=== PATIENT | male | born 1940 | race Caucasian/White ===

== ENCOUNTER 2018-03-17 05:30 | Inpatient (IN) | payer MEDICARE ==
[2018-03-17 05:59] VITALS: BP 149/85
[2018-03-17] MEDS ORDERED: NIFEDIPINE 30 MG PO SCH (09:30)
[2018-03-17] MEDS ORDERED: [UNRECOGNIZED DRUG - OTHER] PO SCH (09:30)
[2018-03-17] MEDS ORDERED: BENAZEPRIL PO SCH (09:30)
[2018-03-17] MEDS ORDERED: AMLODIPINE BESYLATE PO SCH (09:30)
[2018-03-17] MEDS ORDERED: [UNRECOGNIZED DRUG - OTHER] PO SCH (09:30)
[2018-03-17] MEDS ORDERED: GLIMEPIRIDE 1 MG PO SCH (09:30)
[2018-03-17] MEDS ORDERED: HYDROCHLOROTHIAZIDE PO SCH (09:30)
[2018-03-17] MEDS ORDERED: Non-Formulary Item 1 EA (Atorvastatin Calcium [Lipitor] 40 MG) PO SCH (09:30)
[2018-03-17] MEDS ORDERED: LISINOPRIL PO SCH (09:30)
[2018-03-17] MEDS: NITROGLYCERIN OINT 2% 1 INCH PACKET TP SCH ×2 (12:06→17:30)
[2018-03-17] MEDS: INSULIN ASPART SLIDING SCALE 100 UNITS/ML UNIT SUBQ SCH ×3 (12:24→20:34)
--- NOTE | 2018-03-17 12:28 | History & Physical ---
ADMIT DATE: 03/17/2018 IDENTIFICATION: A 77-year-old male. CHIEF COMPLAINT: Chest pain. HISTORY SOURCE: Reviewing the chart from [facility] as well as talking to the patient's family and patient. HISTORY OF PRESENT ILLNESS: A 77-year-old [place] Ze[place]ander Wall[place]ian male with history of type 2 diabetes, hypertension, coronary artery disease, status post bypass graft 3 years ago and is well, also has history of hyperlipidemia, presented to [facility] Emergency Room with substernal chest pain for the last 3 days in duration. According to the patient, the pain started 3-4 days ago, which was exertional and associated with some degree of shortness of breath, where pain got worse yesterday so he presented to ER. The patient was worked up in the Emergency Room, noted to have a negative troponin, but elevated creatinine and abnormal EKG. Based on his cardiac history, it was recommended that the patient should be admitted. Due to his insurance reason, patient is transferred to [facility]. According to the patient's son, he has been diagnosed with chronic kidney disease stage 4, and he is not taking any medications to correct his electrolytes or anything else as well. 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 According to the patient, he does not have any fever, chills, cough, nausea, vomiting, headache, seizure, syncopal episode. He is noted to have a significant amount of left ankle swelling and pain. PAST MEDICAL HISTORY: Remarkable for: 1. Diabetes. 2. Hypertension. 3. Hyperlipidemia. 4. Coronary artery disease, status post bypass graft. 5. Degenerative joint disease. 6. Peripheral vascular disease. 7. Chronic kidney disease. MEDICATIONS AT HOME: The patient is taking multiple medications, which include; 1. Glimepiride. 2. Lotrel. 3. Lisinopril with hydrochlorothiazide. 4. Atorvastatin. 5. Lasix. 6. Losartan. 7. Meclizine. 8. Nifedipine. 9. Flomax. ALLERGIES: The patient is not allergic to medications. SOCIAL HISTORY: The patient resides with family. No history of smoking cigarette, alcohol, or drug use. The patient is an ex-smoker, quit 3 years ago. FAMILY MEDICAL HISTORY: Remarkable for diabetes and hypertension. REVIEW OF SYSTEMS: As I mentioned in history of present illness. PHYSICAL EXAMINATION: GENERAL: A 77-year-old, alert, awake, lying in the bed without any acute distress. VITAL SIGNS: Temperature 98.1, pulse 74, respiration rate 18, blood pressure is 159/90. HEENT: Normocephalic, atraumatic. Extraocular muscles are intact. Tongue was pink and coated. Poor dentition noted. No oral lesion, no exudate, or no sinus tenderness. External auditory canal and tympanic membranes are well visualized. NECK: Supple. Mild neck vein distention noted. No JVD, no lymphadenopathy, thyromegaly. HEART: Both heart sounds are regular. No S3, no S4. No pericardial rub. CHEST AND LUNGS: Equal in expansion with expiratory wheezing. ABDOMEN: Soft. No guarding, no rigidity. Liver, spleen palpable. No palpable mass. EXTREMITIES: Remarkable for left ankle swelling with some dark discoloration noted. Peripheral pulses are +1. No calf tenderness. NEUROLOGIC: Alert, awake, follows command. No gross neuro deficit noted. AVAILABLE DIAGNOSTIC DATA: Performed at [facility] Emergency Room has been reviewed. Total time reviewing the records approximately 10 minutes. CLINICAL IMPRESSION: 1. Recurrent chest pain for the last 3 days. The patient has diabetes, hypertension, coronary artery disease, and chronic kidney disease, noted to have a mild neck vein distention as well. Differential diagnosis for his chest pain is rule out for acute coronary syndrome with possibilities of pericarditis caused by his uremia. 2. Left ankle and foot pain, most likely secondary to gout related to his chronic kidney disease. 3. Diabetes mellitus. 4. Hypertension. 5. Hyperlipidemia. 6. Coronary artery disease, status post bypass graft. 7. Degenerative joint disease. 8. Peripheral vascular disease. 9. Chronic kidney disease stage 4. PLAN: 1. Admit this patient to telemetry unit. 2. Oxygen. 3. Aspirin. 4. Nitrates. 5. Cardiac enzymes. 6. EKG. 7. 2D echocardiogram. 8. One dose of Kenalog injection 40 mg intramuscular x 1. 9. Glucoscan a.c. and at bedtime. 10. Appropriate home medicine reconciliation. 11. Beta-elodia. 12. Follow lab. 13. Nephrology consultation. 14. Cardiology consultation. 15. Care plan reviewed and discussed with the patient and his family at bedside. JOB# [id number]
[2018-03-17 18:44] LABS: URINE SOURCE CLEAN C
[2018-03-17 18:49] LABS: URINE BILIRUBIN NEGATIVE (NEGATIVE); URINE BLOOD TRACE (NEGATIVE); URINE GLUCOSE (UA) 250 mg/dL (NEGATIVE); URINE KETONE NEGATIVE (NEGATIVE); URINE LEUKOCYTE ESTERASE NEGATIVE (NEGATIVE); URINE MICROSCOPIC INDICATED? YES; URINE NITRATE NEGATIVE (NEGATIVE); URINE PROTEIN 100 mg/dL (NEGATIVE); URINE UROBILINOGEN 0.2 E.U./dL (0.2 - 1.0)
[2018-03-17 18:57] LABS: URINE CLARITY CLEAR (CLEAR); URINE COLOR YELLOW
[2018-03-17 19:29] LABS: URINE BACTERIA FEW /hpf (NONE SEEN); URINE EPITHELIAL CELLS FEW /lpf (FEW); URINE WBC 0-2 /hpf (0-5)
[2018-03-18] MEDS: NITROGLYCERIN OINT 2% 1 INCH PACKET TP SCH ×4 (00:18→17:56)
[2018-03-18 06:29] LABS: % BASOPHILS 0.5 % (0.0-2.0); % EOSINOPHILS 3.6 % (0.0-5.0); % LYMPHOCYTES 10.8 % (20.0-50.0); % MONOCYTES 6.7 % (2.0-10.0); % NEUTROPHILS 78.4 % (40.0-80.0); EOSINOPHILE ABSOLUTE 0.3 Th/cmm (0.1-0.4); HEMATOCRIT 30.8 % (41.0-60); HEMOGLOBIN 10.2 gm/dL (12-16); LYMPHOCYTE ABSOLUTE 0.8 Th/cmm (1.5-3.0); MEAN CELL VOLUME 80.2 fl (80-99); MEAN CORPUSCULAR HEMOGLOBIN 26.6 pg (27.0-31.0); MEAN CORPUSCULAR HGB CONC 33.2 pg (28.0-36.0); MEAN PLATELET VOLUME 8.7 fl; MONOCYTE ABSOLUTE 0.5 Th/cmm (0.3-1.0); NEUTROPHILE ABSOLUTE 6.2 Th/cmm (1.8-8.0); PLATELET COUNT 214 Th/cmm (150-400); RED BLOOD COUNT 3.84 Mil/cmm (3.80-5.80); RED CELL DISTRIBUTION WIDTH 14.8 % (11.5-20.0); WHITE BLOOD COUNT 7.8 Th/cmm (4.8-10.8)
--- NOTE | 2018-03-18 07:10 | Consultation ---
DATE OF CONSULTATION: 03/17/2018 HISTORY OF PRESENT ILLNESS: This 77-year-old male was seen and examined. The patient was transferred here from [facility] where he had gone with chest pains. There he was evaluated. Troponin was done, probably troponins were negative. EKG did not show any acute injury pattern. So, the patient was transferred here because of insurance status. The patient does have history of other problems including coronary artery disease, history of coronary artery bypass surgery about 11 years ago, history of hypertension, hyperlipidemia, diabetes type 2, chronic kidney disease, peripheral vascular disease and anxiety. The patient's chest pain has improved. There are no more chest pains. The patient is anxious. PAST MEDICAL HISTORY: Usual childhood diseases. No history of rheumatic fever. No history of scarlet fever. Other past history as mentioned above. FAMILY HISTORY: Not significant. SOCIAL HISTORY: There is no history of smoking or drinking. REVIEW OF SYSTEMS: History of chest pain as mentioned above. There is history of dizziness. No history of syncope, no history of seizures. History of occasional shortness of breath. No history of cough. No history of fever. No history of hemoptysis. No history of abdominal pain. No history of melena. No history of bleeding per rectum. No history of hematuria. PHYSICAL EXAMINATION: VITAL SIGNS: Heart rate was 78, blood pressure was 123/69, temperature 98.8, respirations 18, O2 saturation 100%. Daughter is at bedside. NECK: There was no increased jugular vein distention, no thyromegaly, and no lymphadenopathy. Carotids equal both sides. CHEST: Bilaterally symmetrical, moved well with respiration. Respiratory movements equal both sides. Trachea is central. There is note to percussion. No rales or rhonchi. CARDIOVASCULAR SYSTEM: PMI not well localized and no pulsation or thrill. No parasternal heave. S1 normal, S2 physiologic. There were no S3, no rub. ABDOMEN: Soft, no tenderness, no rigidity, no guarding, no organomegaly. Bowel sounds normal. EXTREMITIES: No edema, no calf tenderness. Peripheral pulses diminished. LABORATORY AND DIAGNOSTIC DATA: Echocardiogram was done that revealed LVH, mitral valve annular calcification, RVH, left atrial enlargement also. Doppler shows TR and MR. Ejection fraction was 61%. Right ventricular systolic pressure 25.4. There are no labs on the chart. There is no EKG on the chart, it was just by history from [place] that the EKG did not show any acute NC. IMPRESSION: Chest pains, possible unstable angina, coronary artery disease status post coronary artery bypass surgery, hypertension, hyperlipidemia, diabetes type 2, diabetic chronic kidney disease and diabetic peripheral vascular disease, degenerative joint disease, anxiety. PLAN: To continue present management. We will get EKG. Echocardiogram already has been done. We will also get lipid profile, TSH. The patient should be continued on nitrates, beta elodia, QUEENIE inhibitor, ARB, statins and aspirin. The patient will need further cardiac evaluation, at least a Lexiscan. Dr. Abraham Rodriguez will be following him from the morning. JOB# [id number]
[2018-03-18] MEDS: INSULIN ASPART SLIDING SCALE 100 UNITS/ML UNIT SUBQ SCH ×4 (08:47→21:57)
[2018-03-18] MEDS: Aspirin 81mg Chewable Tab PO SCH (08:49)
[2018-03-18] MEDS ORDERED: NIFEdipine 30 mg ER Tab PO SCH (09:00)
[2018-03-18 09:31] LABS: ALB/GLOB RATIO 1.1 (1.0-1.8); ALBUMIN 3.8 gm/dL (4.2-5.5); ALKALINE PHOSPHATASE 82 U/L (34-104); ANION GAP 17.5 (7.0-16.0); BILIRUBIN,TOTAL 0.5 mg/dL (0.3-1.0); BUN - UREA NITROGEN 69 mg/dL (7-25); CALCIUM SERUM 6.9 mg/dL (8.6-10.3); CARBON DIOXIDE 19.6 mEq/L (21.0-31.0); CHLORIDE 99 mEq/L (98-107); CHOLESTEROL 109 mg/dL (<200); GLUCOSE 188 mg/dL (70-105); HDL -HIGH DENSITY LIPOPROTEIN 20 mg/dL (23-92); POTASSIUM SERUM 5.1 mEq/L (3.5-5.1); SGOT 7 U/L (13-39); SGPT/ALT 9 U/L (7-52); SODIUM SERUM 131 mEq/L (136-145); TOTAL PROTEIN,SERUM 7.3 gm/dL (6.0-8.3); TRIGLYCERIDES 267 mg/dL (<150)
[2018-03-18 09:47] LABS: CREATININE - SERUM 5.4 mg/dL (0.7-1.3)
--- NOTE | 2018-03-18 10:13 | Diagnostic Imaging Report ---
Renal ultrasound HISTORY: Stage IV chronic kidney disease. Patient reports having one kidney. COMPARISON: None Technique: Sonography of the kidneys and urinary bladder was performed in multiple planes. FINDINGS: The right kidney measures 13.1 x 6.4 x 6.9 cm. There is a cystic lesion which may arise or be adjacent to the right kidney measuring 6.2 x 4.4 cm. There is a probable septation in this region. Additional small right renal cyst is noted measuring 1.1 x 1.5 cm. No hydronephrosis. The left kidney was not visualized. The urinary bladder volume is 231 mL's. The urinary bladder wall measures 3 mm. The prostate gland is enlarged measuring 7.1 x 8.3 cm demonstrating area of nodularity anterior along the base of the bladder measuring 3.5 x 3.4 cm. IMPRESSION: Nonvisualization of the left kidney. Please correlate with patient's clinical and possible surgical history. If necessary CT would further clarify. No evidence of hydronephrosis of the right kidney. Indeterminate cystic lesion measuring 6.2 x 4.4 cm along the right retroperitoneum which may arise from the right kidney or be adjacent to the right kidney. There is a small septation suspected within this lesion. Recommend correlation with old exams available. Short-term chest CT with IV contrast further clarify Additional adjacent smaller right renal cyst. Enlarged prostate gland with mass effect upon the base the bladder nodularity along the anterior aspect. Correlation needs to be made with clinical findings.
--- NOTE | 2018-03-18 15:19 | Consultation ---
DATE OF CONSULTATION: 03/18/2018 ATTENDING PHYSICIAN: Dr. Gabriel Duff. REASON FOR CONSULTATION: Elevated BUN and creatinine. HISTORY OF PRESENT ILLNESS: The patient is a 77-year-old [place]er male with history of type 2 diabetes, hypertension, and coronary artery disease, status post bypass graft 3 years ago. He had a history of CKD-4 one year ago, but never went to see the motion picture actor that he was sent to. He is now admitted here, transferred from [place] because he had chest pain and ended up in [place] ER. Over there, he was found to have worsening of his renal failure and he is transferred here for insurance reasons. I am called in consultation because of his kidney failure. PAST MEDICAL HISTORY: Significant for diabetes, hypertension, hyperlipidemia, coronary artery disease, status post bypass grafting, degenerative joint disease, peripheral vascular disease, chronic kidney disease stage 4. FAMILY HISTORY: Significant for diabetes and hypertension. SOCIAL HISTORY: The patient did not drink, smoke or use any drugs. He is an ex-smoker, quit 3 years ago. ALLERGIES: No known drug allergies. MEDICATIONS: See medication reconciliation form. REVIEW OF SYSTEMS: As in history of present illness. All other systems reviewed and found to be negative. PHYSICAL EXAMINATION: VITAL SIGNS: Blood pressure is 159/90, temperature is 98.1, pulse 74, respirations 18. HEENT: Normocephalic, atraumatic. Pupils equal, round, reacting to light and accommodation. Extraocular movements are intact. CARDIOVASCULAR: S1, S2 heard. Regular rate and rhythm. LUNGS: Clear to auscultation bilaterally. ABDOMEN: Soft. No hepatosplenomegaly. EXTREMITIES: There is no cyanosis, clubbing, or edema. NEUROLOGIC: Cranial nerves 2-12 are intact. No focal deficit. LABORATORY DATA: WBC 7.8, hemoglobin 10.2, hematocrit 30.8, platelet count is 214,000. Sodium 131, potassium 5.1, chloride 99, bicarbonate of 19.6, BUN 69, creatinine 5.4, glucose 188, calcium 6.9, bilirubin 0.5, total bilirubin, AST is 7, ALT 9, alkaline phosphatase 8200. Troponin 0.01 x 3. Urinalysis shows 2+ protein and 2-5 leukocyte. ASSESSMENT AND PLAN: 1. Chronic kidney disease, currently appears to be end-stage renal disease, may need to have dialysis. We will check 24-hour urine. 2. Diabetes mellitus. Cover with sliding scale insulin. 3. Hypertension. Continue antihypertensive medications. 4. Hypocalcemia. We will start on PhosLo. His phosphorus is probably high. We will check that in a.m. Thank you very much for the privilege of consulting on your patient, Dr. Duff. JOB# [id number]
[2018-03-19] MEDS: NITROGLYCERIN OINT 2% 1 INCH PACKET TP SCH ×4 (00:07→17:13)
--- NOTE | 2018-03-19 05:37 | Progress Notes ---
DATE: 03/18/2018 IDENTIFICATION: A 77-year-old male. SUBJECTIVE: The patient seen and examined. The patient is lying in the bed. The patient is getting his echocardiogram. The patient has minimal chest pain and pretty much no ankle pain. [employer] help is greatly appreciated. PHYSICAL EXAMINATION: VITAL SIGNS: Temperature 97.7, pulse 71, respiratory rate is 18, BP 115/53. HEENT: No facial asymmetry. NECK: Supple, no JVD. HEART: Regular. CHEST: Lung equal in expansion, no expiratory wheezing. ABDOMEN: Soft. No guarding or rigidity. Bowel sounds present. No palpable mass. EXTREMITIES: No edema. Left ankle swelling is decreased. Range of motion has improved. AVAILABLE DIAGNOSTIC DATA: Troponins three sets are negative. HDL 39, LDL 29, triglyceride 267, cholesterol 109. Sodium 131, potassium 5.1, chloride 99, CO2 of 19.6, BUN and creatinine are 6 and 5.4, glucose of 175. Hemoglobin 10.2. CLINICAL IMPRESSION: 1. Chest pain in the presence of coronary artery disease, status post bypass graft, rule out for acute myocardial infarction, needs further cardiac evaluation. 2. Chronic kidney disease, stage 4. 3. Anemia of chronic kidney disease. 4. Most likely gout versus pseudogout. 5. Diabetes mellitus. 6. Hypertension. 7. Hyperlipidemia. 8. Degenerative joint disease. 9. Nephrotic syndrome. 10. Obesity. PLAN: 1. Await echocardiogram. 2. Continue to provide medical management for underlying illness. 3. Await cardiology input. 4. Follow lab. 5. Follow consult recommendation. 6. Care plan reviewed and discussed with staff. JOB# [id number]
[2018-03-19 06:31] LABS: % BASOPHILS 0.5 % (0.0-2.0); % EOSINOPHILS 3.8 % (0.0-5.0); % LYMPHOCYTES 13.7 % (20.0-50.0); % MONOCYTES 7.9 % (2.0-10.0); % NEUTROPHILS 74.1 % (40.0-80.0); EOSINOPHILE ABSOLUTE 0.3 Th/cmm (0.1-0.4); HEMATOCRIT 31.1 % (41.0-60); HEMOGLOBIN 10.3 gm/dL (12-16); MEAN CELL VOLUME 79.9 fl (80-99); MEAN CORPUSCULAR HEMOGLOBIN 26.3 pg (27.0-31.0); MEAN CORPUSCULAR HGB CONC 32.9 pg (28.0-36.0); MEAN PLATELET VOLUME 8.8 fl; MONOCYTE ABSOLUTE 0.6 Th/cmm (0.3-1.0); NEUTROPHILE ABSOLUTE 5.2 Th/cmm (1.8-8.0); PLATELET COUNT 209 Th/cmm (150-400); RED CELL DISTRIBUTION WIDTH 15.1 % (11.5-20.0); WHITE BLOOD COUNT 7.1 Th/cmm (4.8-10.8)
[2018-03-19 06:52] LABS: ALB/GLOB RATIO 1.1 (1.0-1.8); ALBUMIN 3.8 gm/dL (4.2-5.5); ALKALINE PHOSPHATASE 81 U/L (34-104); ANION GAP 17.1 (7.0-16.0); BILIRUBIN,TOTAL 0.5 mg/dL (0.3-1.0); BUN - UREA NITROGEN 75 mg/dL (7-25); CALCIUM SERUM 6.9 mg/dL (8.6-10.3); CARBON DIOXIDE 19.6 mEq/L (21.0-31.0); CHLORIDE 101 mEq/L (98-107); GLUCOSE 161 mg/dL (70-105); POTASSIUM SERUM 5.7 mEq/L (3.5-5.1); SGOT 5 U/L (13-39); SGPT/ALT 7 U/L (7-52); SODIUM SERUM 132 mEq/L (136-145); TOTAL PROTEIN,SERUM 7.2 gm/dL (6.0-8.3)
[2018-03-19 07:18] LABS: CREATININE - SERUM 5.5 mg/dL (0.7-1.3)
[2018-03-19] MEDS: INSULIN ASPART SLIDING SCALE 100 UNITS/ML UNIT SUBQ SCH ×4 (08:24→21:51)
[2018-03-19] MEDS: Aspirin 81mg Chewable Tab PO SCH (08:45)
--- NOTE | 2018-03-19 10:59 | Diagnostic Imaging Report ---
Portable chest x-ray HISTORY: Shortness of breath The heart size appears generous. Surgical clips and suture material noted over the mid chest. Faint linear density noted in the right lung base. Changes may be chronic. Pneumonia cannot be definitely excluded. Clinical correlation is needed. IMPRESSION: 1. Faint parenchymal density right lung base. Changes may be chronic. However, pneumonia cannot be excluded. Clinical correlation is needed. 2. Generous heart size with surgical changes
[2018-03-19 11:05] LABS: SURFACE AREA 0.36
--- NOTE | 2018-03-19 12:50 | Cardiology ---
03/17/[address] Vicente. M-MODE ECHOCARDIOGRAM: Mitral valve, anterior leaflet of mitral valve shows normal excursion, EF velocity. Posterior leaflet of the mitral valve shows normal excursion. Left ventricular posterior wall shows increased thickness, normal excursion. Interventricular septum shows increased thickness, normal excursion, hypertrophy of the left ventricle, ejection fraction 61%. Left atrium enlarged 4.6 cm. Aortic root shows normal dimension, normal excursion of aortic leaflets. CONCLUSION: Hypertrophy of the left ventricle, left atrial enlargement, ejection fraction 61%. 2D ECHO: Long axis view show normal sized left ventricle with hypertrophy of the left ventricle. Left atrium enlarged. Aortic root shows normal dimension, normal excursion of aortic leaflets. Short axis view of mitral valve normal. Short axis view of aortic valve normal. Apical four chamber view showed normal sized left ventricle with hypertrophy of the left ventricle. Left atrium enlarged. Right ventricular cavity, right atrium normal, no pericardial effusion. CONCLUSION: Hypertrophy of the left ventricle. Left atrial enlargement, ejection fraction 61%. Doppler study shows mild mitral regurgitation, trace tricuspid regurgitation. [facility]# [id number]
--- NOTE | 2018-03-19 15:06 | Progress Notes ---
DATE: 03/19/2018 IDENTIFICATION: A 77-year-old male. SUBJECTIVE: The patient is seen and examined. The patient's family at bedside. The patient has no new complaint. Cardiology and Nephrology consultation greatly appreciated. Renal ultrasound did reveal the patient has one kidney without any evidence of any hydronephrosis. The patient has been ambulatory at this time. OBJECTIVE: VITAL SIGNS: Temperature 98.1, pulse is 80, respiratory rate 18, and blood pressure 128/71. HEENT: No facial asymmetry. NECK: Supple, no JVD. HEART: Regular. CHEST: Lung equal in expansion. No expiratory wheezing. ABDOMEN: Soft. No guarding, no rigidity. Bowel sounds present. No palpable mass. EXTREMITIES: No edema. AVAILABLE LABORATORY DATA AND DIAGNOSTIC DATA: Hemoglobin of 10.3 and platelet count of 209. BUN and creatinine are 75/5.5, potassium of 5.7. Glucoscan reviewed. A 24 hours urine for protein and creatinine clearance reveal the patient has proteinuria of 2006 and 46.0 mg per 24 hours and creatinine clearance was 11 mL. CLINICAL IMPRESSION: 1. Chest pain, noncardiac. 2. Possible pericarditis. 3. Hyperkalemia. 4. Nephrotic range proteinuria. 5. Stage V chronic kidney disease, need for hemodialysis. 6. Diabetes mellitus. 7. Hypertension. 8. Coronary artery disease, status post bypass graft. PLAN: Lengthy exhaustive discussion with the patient and family about underlying diagnosis. Recommend to treat hyperkalemia. The patient needs to have outpatient workup for her heart, but this time, the patient is to be seen by college athletic director and to begin with hemodialysis. May be the ____ take care of this patient. Meanwhile, continue same medicine as prescribed. We will have case management to look for this patient to have outpatient Lexiscan and appropriate safe discharge planning to home as well. Electrolytes will be corrected as well. Care plan has been reviewed and discussed with the patient's family and the patient. JOB# [id number]
[2018-03-20] MEDS: NITROGLYCERIN OINT 2% 1 INCH PACKET TP SCH ×4 (00:10→17:55)
[2018-03-20 05:07] LABS: % BASOPHILS 0.9 % (0.0-2.0); % EOSINOPHILS 5.3 % (0.0-5.0); % LYMPHOCYTES 11.8 % (20.0-50.0); % MONOCYTES 7.8 % (2.0-10.0); % NEUTROPHILS 74.2 % (40.0-80.0); BASOPHILE ABSOLUTE 0.1 Th/cumm (0-0.2); EOSINOPHILE ABSOLUTE 0.4 Th/cmm (0.1-0.4); HEMATOCRIT 29.8 % (41.0-60); HEMOGLOBIN 10.1 gm/dL (12-16); MEAN CELL VOLUME 78.9 fl (80-99); MEAN CORPUSCULAR HEMOGLOBIN 26.8 pg (27.0-31.0); MEAN CORPUSCULAR HGB CONC 33.9 pg (28.0-36.0); MONOCYTE ABSOLUTE 0.6 Th/cmm (0.3-1.0); PLATELET COUNT 229 Th/cmm (150-400); RED BLOOD COUNT 3.78 Mil/cmm (3.80-5.80); RED CELL DISTRIBUTION WIDTH 15.1 % (11.5-20.0); WHITE BLOOD COUNT 8.1 Th/cmm (4.8-10.8)
[2018-03-20 05:12] LABS: INR 1.02 (0.5-1.4); PROTHROMBIN TIME (TEST) 10.6 SECONDS (9.5-11.5)
[2018-03-20 05:39] LABS: ALB/GLOB RATIO 1.1 (1.0-1.8); ALBUMIN 3.7 gm/dL (4.2-5.5); ALKALINE PHOSPHATASE 76 U/L (34-104); ANION GAP 17.8 (7.0-16.0); BILIRUBIN,TOTAL 0.6 mg/dL (0.3-1.0); BUN - UREA NITROGEN 67 mg/dL (7-25); CALCIUM SERUM 6.6 mg/dL (8.6-10.3); CARBON DIOXIDE 20.4 mEq/L (21.0-31.0); CHLORIDE 100 mEq/L (98-107); GLUCOSE 165 mg/dL (70-105); POTASSIUM SERUM 4.2 mEq/L (3.5-5.1); SGOT 7 U/L (13-39); SGPT/ALT 8 U/L (7-52); SODIUM SERUM 134 mEq/L (136-145); TOTAL PROTEIN,SERUM 7.1 gm/dL (6.0-8.3)
[2018-03-20 05:50] LABS: CREATININE - SERUM 5.4 mg/dL (0.7-1.3)
[2018-03-20] MEDS: INSULIN ASPART SLIDING SCALE 100 UNITS/ML UNIT SUBQ SCH ×4 (07:05→20:49)
[2018-03-20 08:08] LABS: IRON LC 66 ug/dL (38-169); TIBC (LC) 273 ug/dL (250-450); UIBC 207 ug/dL (111-343)
[2018-03-20] MEDS: Aspirin 81mg Chewable Tab PO SCH (08:19)
[2018-03-20] MEDS ORDERED: fentaNYL Citrate 100 mcg/2mL Vial ONE (14:30)
[2018-03-20] MEDS ORDERED: Propofol **SURGERY USE ONLY** 20 ML IV ONE ×2 (14:30)
--- NOTE | 2018-03-20 16:02 | History & Physical Pre-OP ---
DATE OF SERVICE: 03/20/2018 PREOPERATIVE DIAGNOSES: 1. Chronic renal failure -- end-stage renal disease. 2. Absent left kidney. 3. Coronary artery disease, post-bypass. 4. Hypertension. 5. Diabetes mellitus POSTOPERATIVE DIAGNOSES: 1. Chronic renal failure -- end-stage renal disease. 2. Absent left kidney. 3. Coronary artery disease, post-bypass. 4. Hypertension. 5. Diabetes mellitus OPERATION: Insertion of Perm-A-Cath, right subclavian vein under ultrasound and fluoroscopy. SURGEON: Deo Rodriguez M.D. ANESTHESIA: MAC anesthesia. ANESTHESIOLOGIST: Nury Asencio M.D. ESTIMATED BLOOD LOSS: 2 mL. DESCRIPTION OF PROCEDURE: The patient was given IV sedation. The right chest was prepped with ChloraPrep and draped in appropriate manner. A 1% lidocaine was used to infiltrate the area identified on ultrasound. An incision was made and a size 18 needle was used to get vein. Guide was inserted under fluoroscopy and was found to further course into the inferior vena cava. The dilator and then the introducer was placed over the guidewire under fluoroscopy and then the 24 cm Perm-A-Cath was inserted. This was sutured to the chest wall with 2-0 nylon. The patient tolerated the procedure well. [facility]# [id number]
--- NOTE | 2018-03-20 17:04 | Consultation ---
DATE OF CONSULTATION: 03/20/2018 VASCULAR CONSULTATION REFERRING PHYSICIAN: Dr. Henry/ Dr. Duff. REASON FOR CONSULTATION: Chronic renal failure with hyperkalemia. Thank you for referring this patient to me. HISTORY OF PRESENT ILLNESS: This is a 77-year-old male with known history of diabetes and apparently was warned about possible dialysis about a year ago, but did not follow up on this. In addition, he has hypertension, hyperlipidemia, coronary artery disease, status post bypass graft, degenerative joint disease, peripheral vascular disease as well. On admission, the potassium was 5.4. The patient was given Kayexalate. Consult with Dr. Cardoso and Dr. Rodriguez and the echocardiogram showed 65% ejection fraction. The ultrasound showed absent left kidney and the right kidney cyst. The BUN is 67 and creatinine of 5.4. The recommendations of the intake nurse, Dr. Henry is for the patient to undergo hemodialysis and will place a Perm-A-Cath in the subclavian location. Informed consent discussed with the patient and the son and grandson. Consent given. The patient would likely need permanent dialysis access and will contact Dr. Henry for the procedure if he agrees. JOB# [id number]
[2018-03-20] MEDS ORDERED: Heparin Sodium 1,000 Units/mL Vial HD ONE (23:02)
[2018-03-21] MEDS: NITROGLYCERIN OINT 2% 1 INCH PACKET TP SCH ×4 (00:08→17:28)
[2018-03-21 05:31] LABS: % BASOPHILS 0.3 % (0.0-2.0); % EOSINOPHILS 2.5 % (0.0-5.0); % LYMPHOCYTES 8.2 % (20.0-50.0); EOSINOPHILE ABSOLUTE 0.2 Th/cmm (0.1-0.4); HEMATOCRIT 33.1 % (41.0-60); HEMOGLOBIN 10.7 gm/dL (12-16); LYMPHOCYTE ABSOLUTE 0.6 Th/cmm (1.5-3.0); MEAN CORPUSCULAR HEMOGLOBIN 25.9 pg (27.0-31.0); MEAN CORPUSCULAR HGB CONC 32.4 pg (28.0-36.0); MEAN PLATELET VOLUME 8.7 fl; MONOCYTE ABSOLUTE 0.8 Th/cmm (0.3-1.0); PLATELET COUNT 230 Th/cmm (150-400); RED BLOOD COUNT 4.14 Mil/cmm (3.80-5.80); WHITE BLOOD COUNT 7.6 Th/cmm (4.8-10.8)
[2018-03-21 06:17] LABS: ALB/GLOB RATIO 1.1 (1.0-1.8); ALBUMIN 3.8 gm/dL (4.2-5.5); ALKALINE PHOSPHATASE 80 U/L (34-104); ANION GAP 14.8 (7.0-16.0); BILIRUBIN,TOTAL 0.6 mg/dL (0.3-1.0); BUN - UREA NITROGEN 39 mg/dL (7-25); CALCIUM SERUM 7.7 mg/dL (8.6-10.3); CARBON DIOXIDE 25.9 mEq/L (21.0-31.0); CHLORIDE 100 mEq/L (98-107); CREATININE - SERUM 3.7 mg/dL (0.7-1.3); GLUCOSE 177 mg/dL (70-105); POTASSIUM SERUM 3.7 mEq/L (3.5-5.1); SGOT 7 U/L (13-39); SGPT/ALT 8 U/L (7-52); SODIUM SERUM 137 mEq/L (136-145); TOTAL PROTEIN,SERUM 7.2 gm/dL (6.0-8.3)
--- NOTE | 2018-03-21 06:58 | Progress Notes ---
DATE: 03/20/2018 SUBJECTIVE: The patient seen and examined. The patient is lying in the bed comfortably. No family member at bedside. The patient does not have any chest pain, shortness of breath, palpitation, dizziness, nausea, vomiting, headache, seizure, syncopal episode. The patient is scheduled to have Perm-A-Cath followed by dialysis today. Discussed with case management at [place] about discharge planning of this patient's to home with outpatient dialysis. PHYSICAL EXAMINATION: VITAL SIGNS: Today's exam, temperature 97.5, pulse 80, respiratory rate 20, blood pressure 140/76. HEENT: No facial asymmetry. NECK: Supple, no JVD. HEART: Regular. CHEST AND LUNGS: Equal in expansion, no expiratory wheezing. ABDOMEN: Soft. No guarding, no rigidity. Bowel sounds present. No palpable mass. EXTREMITIES: No edema. AVAILABLE DIAGNOSTIC DATA: White count of 8.1, hemoglobin 10.1, platelet count 229, BUN and creatinine 67 and 5.4, anion gap of 17.8, albumin of 3.7. CLINICAL IMPRESSION: 1. End-stage renal disease, on need for hemodialysis. 2. Anemia of chronic kidney disease. 3. Diabetes. 4. Hypertension. 5. Coronary artery disease, status post bypass graft. 6. Degenerative joint disease. PLAN: 1. Proceed with Perm-A-Cath followed by hemodialysis. 2. Continue current medication as prescribed. 3. Continue to keep this patient on monitored bed. Follow lab and computer consultant's recommendations. Discharge plan after hemodialysis. 4. Care plan reviewed and discussed with the patient and his family at bedside. All questions have been answered. JOB# [id number]
[2018-03-21] MEDS: INSULIN ASPART SLIDING SCALE 100 UNITS/ML UNIT SUBQ SCH ×4 (06:59→21:11)
--- NOTE | 2018-03-21 08:40 | Diagnostic Imaging Report ---
Fluoroscopy was utilized for facilitation of permacath placement. Please refer to the procedural report for complete details. The total fluoroscopic time was 52 seconds.
--- NOTE | 2018-03-21 08:41 | Diagnostic Imaging Report ---
Right upper extremity DVT study HISTORY: Permacath placement, rule out DVT COMPARISON: None Technique: Longitudinal and transverse sonographic images of the right upper extremity veins were obtained with doppler analysis. FINDINGS: There is patency of the right jugular, subclavian, axilla, brachial, basilic, cephalic veins. Compressibility and augmentation is demonstrated with no evidence of DVT formation. IMPRESSION: No evidence of DVT within the right upper extremity venous system..
[2018-03-21] MEDS: Aspirin 81mg Chewable Tab PO SCH (09:01)
[2018-03-21] MEDS ORDERED: Gelatin Sponge 100cm Spg TP ONE (11:03)
[2018-03-21] MEDS ORDERED: Thrombin, Bovine 5,000 IU Vial TP ONE (11:03)
[2018-03-21] MEDS ORDERED: Bupivacaine 0.25% W/Ep 10 mL Vial ONE ×2 (12:20→12:21)
[2018-03-21] MEDS ORDERED: fentaNYL Citrate 100 mcg/2mL Vial ONE (14:25)
[2018-03-21] MEDS ORDERED: Propofol **SURGERY USE ONLY** 20 ML IV ONE (14:26)
--- NOTE | 2018-03-21 15:37 | Operative Report ---
DATE OF SURGERY: 03/21/2018 PREOPERATIVE DIAGNOSES: 1. Chronic renal failure. 2. Solitary right kidney. 3. Hypertension. POSTOPERATIVE DIAGNOSES: 1. Chronic renal failure. 2. Solitary right kidney. 3. Hypertension. OPERATION DONE: Placement of Eusebio fistula, left arm. SURGEON: Deo Rodriguez M.D. ANESTHESIA: MAC. ANESTHESIOLOGIST: Bakari. Estimated blood LOSS: 10 mL. Informed consent discussed with the patient and family regarding the need for permanent access per request by Dr. Henry. OPERATIVE FINDINGS: The median basilic vein was found to be marginal at about 3 mm and this was dilated. The brachial artery was 3 mm with minimal calcification. DESCRIPTION OF PROCEDURE: The patient was given IV sedation. The left upper extremity was prepped with Betadine and draped in appropriate manner. A 1% lidocaine was used to infiltrate the antecubital fossa. Incision was made along the skin line. A cephalic vein was of small quality. A median basilic vein was acceptable and was dilated following 3000 units of heparin. Brachial artery was exposed and clamps were applied vascular and distal. An arteriotomy was made in its anterior wall. The vein was transected and the proximal portion tied and the open end was anastomosed in end-to-side fashion to the artery utilizing running suture of 5-0 Prolene. Following release of clamps, there was good flow through the fistula. The incision was closed with running suture of 3-0 Vicryl subcutaneously and the skin with 4-0 Vicryl. Sterile dressing was placed over this. The patient tolerated the procedure well. [facility]# [id number]
[2018-03-22] MEDS: NITROGLYCERIN OINT 2% 1 INCH PACKET TP SCH ×4 (00:23→17:25)
--- NOTE | 2018-03-22 01:06 | Progress Notes ---
DATE: IDENTIFICATION: A 77-year-old male. SUBJECTIVE: The patient seen and examined, status post Keegan catheter placement. The patient did have dialysis yesterday, dialysis going to done today as well. The patient is scheduled to have AV fistula placement today as well. The patient is also getting his dialysis. I did have a discussion with case management about discharging this patient to home with appropriate arrangement. The patient currently denies any chest pain, shortness of breath, palpitation, dizziness, nausea, vomiting. PHYSICAL EXAMINATION: VITAL SIGNS: Temperature 98.7, pulse 80, respiratory rate 18, and blood pressure 134/64. HEENT: No facial asymmetry. NECK: Supple, no JVD. HEART: Regular. CHEST AND LUNGS: Equal in expansion, no expiratory wheezing. ABDOMEN: Soft. EXTREMITIES: No edema. CLINICAL IMPRESSION: 1. End-stage renal disease, status post Keegan catheter. 2. Anemia of chronic kidney disease. 3. Diabetes mellitus. 4. Hypertension. 5. Hyperlipidemia. 6. Coronary artery disease, status post bypass graft. 7. Degenerative joint disease. PLAN: As per forestry consultant, AV graft placement followed by discharge planning to home. Appropriate arrangement has been initiated. The patient will be discharged once everything is arranged with a new prescription, which includes Coreg, PhosLo, Norvasc, aspirin, Lasix, Amaryl, Cozaar, Isordil, and Flomax. JOB# [id number]
[2018-03-22 04:46] LABS: % BASOPHILS 0.8 % (0.0-2.0); % EOSINOPHILS 2.1 % (0.0-5.0); % LYMPHOCYTES 8.4 % (20.0-50.0); % MONOCYTES 11.5 % (2.0-10.0); % NEUTROPHILS 77.2 % (40.0-80.0); BASOPHILE ABSOLUTE 0.1 Th/cumm (0-0.2); EOSINOPHILE ABSOLUTE 0.2 Th/cmm (0.1-0.4); HEMOGLOBIN 10.9 gm/dL (12-16); LYMPHOCYTE ABSOLUTE 0.7 Th/cmm (1.5-3.0); MEAN CELL VOLUME 80.5 fl (80-99); MEAN CORPUSCULAR HEMOGLOBIN 26.7 pg (27.0-31.0); MEAN CORPUSCULAR HGB CONC 33.1 pg (28.0-36.0); MEAN PLATELET VOLUME 8.8 fl; NEUTROPHILE ABSOLUTE 6.6 Th/cmm (1.8-8.0); PLATELET COUNT 218 Th/cmm (150-400); RED CELL DISTRIBUTION WIDTH 14.7 % (11.5-20.0); WHITE BLOOD COUNT 8.6 Th/cmm (4.8-10.8)
[2018-03-22 05:07] LABS: ALBUMIN 3.7 gm/dL (4.2-5.5); ALKALINE PHOSPHATASE 76 U/L (34-104); BILIRUBIN,TOTAL 0.8 mg/dL (0.3-1.0); BUN - UREA NITROGEN 29 mg/dL (7-25); CALCIUM SERUM 7.6 mg/dL (8.6-10.3); CARBON DIOXIDE 22.2 mEq/L (21.0-31.0); CHLORIDE 99 mEq/L (98-107); CREATININE - SERUM 3.6 mg/dL (0.7-1.3); GLUCOSE 191 mg/dL (70-105); POTASSIUM SERUM 4.2 mEq/L (3.5-5.1); SGOT 15 U/L (13-39); SGPT/ALT 4 U/L (7-52); SODIUM SERUM 135 mEq/L (136-145); TOTAL PROTEIN,SERUM 7.4 gm/dL (6.0-8.3)
[2018-03-22 08:08] LABS: HEP B CORE AB TOTAL Negative (Negative); HEP B SURFACE AB QUANT >1000.0 mIU/mL (Immunity>9.9)
[2018-03-22] MEDS: INSULIN ASPART SLIDING SCALE 100 UNITS/ML UNIT SUBQ SCH ×4 (08:18→20:24)
[2018-03-22] MEDS: Aspirin 81mg Chewable Tab PO SCH (09:27)
[2018-03-23] MEDS: NITROGLYCERIN OINT 2% 1 INCH PACKET TP SCH ×4 (00:38→18:10)
--- NOTE | 2018-03-23 05:03 | Progress Notes ---
DATE: 03/22/2018 IDENTIFICATION: A 77-year-old male. SUBJECTIVE: The patient seen and examined, status post AV graft placement on the left upper extremity. The patient currently denies any chest pain, shortness of breath, palpitation, gets dizzy when he stands up too fast. The patient denies any seizure or syncopal episode. Has a fair appetite. The patient has a attendant campground in [facility]. PHYSICAL EXAMINATION: VITAL SIGNS: On today's exam, temperature 98.1, pulse is 80, respiratory rate is 18, blood pressure 150/73. HEENT: No facial asymmetry. NECK: Supple, no JVD. HEART: Regular. CHEST AND LUNGS: Equal in expansion with expiratory wheezing. ABDOMEN: Soft. No guarding or rigidity. Bowel sounds present. No palpable mass. EXTREMITIES: No edema. NEUROLOGIC: Nonfocal. CLINICAL IMPRESSION: 1. End-stage renal disease, on hemodialysis. 2. Hypertension. 3. Coronary artery disease. 4. Diabetes mellitus. 5. Degenerative joint disease. 6. Diabetic nephropathy. 7. Debility PLAN: 1. Continue current medication as prescribed. 2. Monitor blood sugar and blood pressure. 3. PT, OT. Follow consult recommendation. Discharge planning to home once cleared by pants busheler. JOB# [id number]
[2018-03-23 05:43] LABS: HEMATOCRIT 31.8 % (41.0-60); HEMOGLOBIN 10.4 gm/dL (12-16); MEAN CORPUSCULAR HEMOGLOBIN 26.4 pg (27.0-31.0); MEAN CORPUSCULAR HGB CONC 32.6 pg (28.0-36.0); MEAN PLATELET VOLUME 8.9 fl; PLATELET COUNT 205 Th/cmm (150-400); RED BLOOD COUNT 3.92 Mil/cmm (3.80-5.80); RED CELL DISTRIBUTION WIDTH 15.3 % (11.5-20.0); WHITE BLOOD COUNT 7.4 Th/cmm (4.8-10.8)
[2018-03-23 06:14] LABS: ANION GAP 15.5 (7.0-16.0); BUN - UREA NITROGEN 38 mg/dL (7-25); CALCIUM SERUM 7.2 mg/dL (8.6-10.3); CARBON DIOXIDE 25.3 mEq/L (21.0-31.0); CHLORIDE 97 mEq/L (98-107); GLUCOSE 179 mg/dL (70-105); POTASSIUM SERUM 3.8 mEq/L (3.5-5.1)
[2018-03-23 06:29] LABS: CREATININE - SERUM 4.5 mg/dL (0.7-1.3)
[2018-03-23 06:33] LABS: SODIUM SERUM 134 mEq/L (136-145)
[2018-03-23 06:37] LABS: NEUTROPHILS 71 % (40-80)
[2018-03-23 06:38] LABS: BAND NEUTROPHILE 0 % (0-10); EOSINOPHIL 4 % (0-5); LYMPHOCYTE 13 % (20-50); MONOCYTE 12 % (2-10)
[2018-03-23] MEDS: INSULIN ASPART SLIDING SCALE 100 UNITS/ML UNIT SUBQ SCH ×3 (08:07→16:58)
[2018-03-23] MEDS: Aspirin 81mg Chewable Tab PO SCH (08:39)
--- NOTE | 2018-05-01 21:20 | Discharge Summary ---
DATE OF DISCHARGE: 03/23/2018 PRINCIPAL DIAGNOSES: 1. Chest pain, most likely secondary to pericarditis. 2. End-stage liver disease, required hemodialysis. 3. Hypertension. 4. Left ankle foot, secondary to gout. 5. Coronary artery disease. 6. Diabetes mellitus. 7. Degenerative joint disease. 8. Diabetic nephropathy. 9. Obesity. 10. Peripheral vascular disease. 11. Decline in self-care, mobility. BRIEF STATEMENT FOR THE REASON FOR ADMISSION: A 77-year-old [place]ien male transferred from [facility] to [facility] for management of his chest pain. Please refer to my medical H and P for further information. HOSPITAL COURSE: The patient was admitted to telemetry unit. Oxygen, aspirin, nitrates, cardiac enzymes were requested. EKG, 2D echocardiogram also requested. It was noted that the patient's ankle and foot secondary to gout, Kenalog injection was also given. Appropriate home medicine was reconciled. Chronic disease was also managed. The patient was seen by the school plant consultant and had an appropriate workup. It was noted that the patient's chest pain was atypical in origin. The patient did have echocardiogram, which did reveal the patient had evidence of LVH with ejection fraction of 61%, mild mitral regurgitation and trace tricuspid regurgitation was reported. The patient's symptoms of left ankle pain was resolved with Kenalog. Workup did reveal that the patient had a stage 4 to stage 5 chronic kidney disease and further evaluation by herbicide service sales representative it was recommended that the patient has all signs and symptoms of uremia and patient needs to have hemodialysis. The patient was seen by Dr. Rodriguez. The patient did have upper extremity ultrasound. After that, the patient underwent a hemodialysis catheter placement. The patient did receive hemodialysis under care of herbicide service sales representative. The patient was also noted to have a solitary right kidney as well. The patient needs to have hemodialysis to be done as an outpatient 3 times a week. operating room manager was consulted and it was arranged as an outpatient to get hemodialysis. The patient is also noted to have fistula on his left upper extremity as well. The patient was significantly improved and physical therapy and occupational therapy also started. The patient was discharged on 03/23/2018 in stable condition where the patient will be followed by his money manager. At the time of discharge, all of his medications were reconciled and new prescriptions were given. The patient will be followed by his money manager. JOB# [id number]
== END 2018-03-23 18:05 | disposition home health service (06) | DRG 673 ==
LOC: TELE 05:30
PROVIDERS: ADMIT Internal Medicine; ATTEND Internal Medicine
PROC: 5A1D70Z Performance of Urinary Filtration, Intermittent, Less than 6 Hours Per Day (ICD-10-PCS; 2018-03-20)
PROC: 06H033Z Insertion of Infusion Device into Inferior Vena Cava, Percutaneous Approach (ICD-10-PCS; 2018-03-20)
PROC: B5191ZA Fluoroscopy of Inferior Vena Cava using Low Osmolar Contrast, Guidance (ICD-10-PCS; 2018-03-20)
PROC: 03180ZD Bypass Left Brachial Artery to Upper Arm Vein, Open Approach (ICD-10-PCS; principal; 2018-03-21)
PROC: 5A1D70Z Performance of Urinary Filtration, Intermittent, Less than 6 Hours Per Day (ICD-10-PCS; 2018-03-21)
PROC: 5A1D70Z Performance of Urinary Filtration, Intermittent, Less than 6 Hours Per Day (ICD-10-PCS; 2018-03-23)
DX: I12.0 Hypertensive chronic kidney disease with stage 5 chronic kidney disease or end stage renal disease (principal); N18.6 End stage renal disease; I31.9 Disease of pericardium, unspecified; Q60.0 Renal agenesis, unilateral; M10.9 Gout, unspecified; E78.5 Hyperlipidemia, unspecified; I25.10 Atherosclerotic heart disease of native coronary artery without angina pectoris; M19.90 Unspecified osteoarthritis, unspecified site; E11.51 Type 2 diabetes mellitus with diabetic peripheral angiopathy without gangrene; E11.22 Type 2 diabetes mellitus with diabetic chronic kidney disease; F41.9 Anxiety disorder, unspecified; D63.1 Anemia in chronic kidney disease; E66.9 Obesity, unspecified; E83.51 Hypocalcemia; E87.5 Hyperkalemia; E11.21 Type 2 diabetes mellitus with diabetic nephropathy; Z95.1 Presence of aortocoronary bypass graft; Z79.84 Long term (current) use of oral hypoglycemic drugs; Z87.891 Personal history of nicotine dependence; Z68.27 Body mass index [BMI] 27.0-27.9, adult; Z83.3 Family history of diabetes mellitus; Z98.890 Other specified postprocedural states; Z90.5 Acquired absence of kidney
CPT/HCPCS: 36415-UA; 71045-TC; 76000-TC; 76770-TC; 80048-TC; 80053-TC; 80061-TC; 81001-TC; 81050-TC; 82570-TC; 82575-TC; 82948-90; 83036-90; 83540-90; 83550-90; 84100-TC; 84156-TC; 84443-TC; 84484-TC; 84550-TC; 85007-TC; 85025-TC; 85610-TC; 86704-90; 86706-90; 87340-90; 90799; 90937; 93005; 93307-TC; 94760; 97971-TC-LT; J0690; J1644; J1815; J2001; J2704; J3010; J3301; J7030; V2790; Z7610